=== PATIENT | female | born 1975 | race Two or more races ===

== ENCOUNTER 2021-04-22 12:29 | Outpatient (CLI) | payer OTHER | END 2021-04-22 12:34 | disposition home or self-care (01) | LOC: SONOGRAMA 12:29 | PROVIDERS: ATTEND Pathology Anatomic Pathology & Clinical Pathology | DX: E04.1 Nontoxic single thyroid nodule (principal) ==

== ENCOUNTER 2024-05-16 09:08 | Outpatient (CLI) | payer OTHER ==
[2024-05-16 10:08] LABS: HEMOGLOBIN 13.3 g/dL (12.0-15.00); MEAN CELL VOLUME 94.4 fL (80.00-100.00); MEAN CORPUSCULAR HEMOGLOBIN 32.1 pg (27.00-32.0); PLATELET COUNT 265 K/uL (150-450); RED BLOOD COUNT 4.13 M/uL (4.00-6.00); RED CELL DISTRIBUTION WIDTH 13.1 % (11.5-14.5)
[2024-05-16 11:19] LABS: ALBUMIN 3.9 gm/dL (3.4-5.0); BILIRUBIN TOTAL 0.53 mg/dL (0.3-1.2); CALCIUM 9.1 mg/dL (8.5-10.1); CREATININE SERUM 0.81 mg/dL (0.55-1.02); GFR 75.15; GLOBULINA 2.8 G/DL (2.4-3.5); POTASSIUM 4.16 mEq/L (3.5-5.1); T4 FREE 0.72 NG/ML (0.76-1.46); TOTAL PROTEIN 6.7 gm/dL (6.4-8.2); TSH 2.38 uIU/mL (0.358-3.74)
== END 2024-05-16 13:00 | disposition home or self-care (01) ==
LOC: LAB 09:08
PROVIDERS: ATTEND Student in an Organized Health Care Education/Training Program
DX: E03.8 Other specified hypothyroidism (principal); I10 Essential (primary) hypertension; C73 Malignant neoplasm of thyroid gland; D50.8 Other iron deficiency anemias

== ENCOUNTER 2024-05-19 09:23 | Outpatient (CLI) | payer OTHER | END 2024-05-19 09:27 | disposition home or self-care (01) | LOC: SONOGRAMA 09:23 | PROVIDERS: ATTEND Student in an Organized Health Care Education/Training Program | DX: E04.2 Nontoxic multinodular goiter (principal) ==

== ENCOUNTER 2024-11-03 12:58 | Emergency (ER) | payer OTHER ==
[~2024-11-03] VITALS: Ht 172.7 cm; Wt 74.8 kg
[2024-11-03] MEDS ORDERED: KETOROLAC TROMETHAMINE 60 MG VIAL IM STA (13:42)
[2024-11-03] MEDS ORDERED: DEXAMETHASONE SODIUM PHOSPHATE 4 MG/ML VIAL IM STA (13:43)
[2024-11-03] MEDS ORDERED: KETOROLAC TROMETHAMINE 60 MG VIAL IM ONE (14:04)
[2024-11-03] MEDS ORDERED: DEXAMETHASONE SODIUM PHOSPHATE 4 MG/ML VIAL ONE (14:06)
[2024-11-03 15:03] LABS: BASO % 0.3 % (0.1-1.2); EOS # 0.08 (0.04-0.54); EOS % 0.8 % (0.7-7.0); HEMATOCRIT 38.1 % (34.1-44.9); HEMOGLOBIN 12.4 g/dL (11.2-15.7); LYMPH # 2.77 (1.18-3.74); LYMPH % 27.7 % (19.3-53.1); MEAN CORPUSCULAR HEMOGLOBIN 30.8 pg (25.6-32.2); MONO # 0.54 (0.24-0.82); MONO % 5.4 % (4.7-12.5); NEUT # 6.56 (1.56-6.13); NEUT % 65.6 % (34.0-71.1); PLATELET COUNT 281 K/uL (163-369); RED BLOOD COUNT 4.03 M/uL (3.93-5.22)
[2024-11-03] MEDS ORDERED: KETO10TA2 PO (15:33)
[2024-11-03] MEDS ORDERED: MEDROLPACK PO (15:33)
[2024-11-03] MEDS ORDERED: TRAM1TAB98 PO (15:44)
== END 2024-11-03 16:25 | disposition home or self-care (01) ==
LOC: ER 13:25
PROVIDERS: General Practice
DX: M25.531 Pain in right wrist (principal)

== ENCOUNTER 2025-02-01 08:06 | Emergency (ER) | payer OTHER ==
[~2025-02-01] VITALS: Ht 172.7 cm; Wt 76.2 kg
[~2025-02-01 08:06] MED LIST: KETO10TA2 PO; MEDROLPACK PO; TRAM1TAB98 PO
[2025-02-01 08:11] VITALS: BP 141/88; O2SAT 99
[2025-02-01] MEDS ORDERED: ALBUTEROL SULFATE 3 ML/2.5 MG AMPUL.NEB IH STA (08:53)
[2025-02-01] MEDS ORDERED: METHYLPREDNISOLONE SOD SUCC IM STA (08:53)
[2025-02-01] MEDS ORDERED: CODEINE PHOSPHATE/GUAIFENESIN 5 ML ML PO STA (08:54)
[2025-02-01] MEDS ORDERED: IPRATROPIUM BROMIDE 0.5 MG/2.5 ML AMPUL.NEB IH STA (08:54)
[2025-02-01] MEDS ORDERED: METHYLPREDNISOLONE SOD SUCC 40 MG VIAL IM STA (09:06)
[2025-02-01 09:36] LABS: BASO % 0.3 % (0.1-1.2); EOS # 0.11 (0.04-0.54); EOS % 0.8 % (0.7-7.0); LYMPH # 2.24 (1.18-3.74); LYMPH % 16.7 % (19.3-53.1); MEAN PLATELET VOLUME 10.50 fl (9.4-12.4); MONO # 0.66 (0.24-0.82); MONO % 4.9 % (4.7-12.5); NEUT # 10.34 (1.56-6.13); NEUT % 76.9 % (34.0-71.1); RED CELL DISTRIBUTION WIDTH 11.8 % (11.6-14.4)
[2025-02-01 10:12] LABS: ALT/SGPT 23.0 U/L (12-78); AST/SGOT 15.0 U/L (15-37); BILIRUBIN TOTAL 0.55 mg/dL (0.3-1.2); BUN CREA RATIO 12.0 (7.0-25.0); CREATININE SERUM 0.76 mg/dL (0.55-1.02); GFR 80.55; GLOBULINA 3.8 G/DL (2.4-3.5); GLUCOSE FASTING 91.0 mg/dL (65-100); OSMOLALITY SERUM 283.0 MOSM/KG (275-295)
[2025-02-01 11:03] LABS: COVID-19 AG NEGATIVE (NEGATIVE)
== END 2025-02-01 12:58 | disposition home or self-care (01) ==
LOC: ER 08:06
PROVIDERS: General Practice
DX: J06.9 Acute upper respiratory infection, unspecified (principal); Z20.822 Contact with and (suspected) exposure to COVID-19